=== PATIENT | male | born 1970 | race Caucasian/White ===

== ENCOUNTER 2024-06-27 03:21 | Emergency (ER) | payer OTHER ==
[2024-06-27 03:30] VITALS: BP 154/110; PULSE 78; RESP 16; TEMP 98.6; BMI 33.7
[2024-06-27] MEDS ORDERED: LIDOCAINE 5% TOPICAL PATCH ONE (03:46)
[2024-06-27] MEDS ORDERED: KETOROLAC TROMETHAMINE 60 MG/2 ML VIAL ONE (03:46)
[2024-06-27] MEDS: LIDOCAINE 5% TOPICAL PATCH TP ONE (04:05)
[2024-06-27] MEDS: KETOROLAC TROMETHAMINE 60 MG/2 ML VIAL IM ONE (04:06)
[2024-06-27] MEDS ORDERED: LIDOCAINE PATCH REMOVAL MC SCH (22:00)
== END 2024-06-27 04:10 | disposition home or self-care (01) ==
LOC: FER 03:21
PROC: 3E0233Z Introduction of Anti-inflammatory into Muscle, Percutaneous Approach (ICD-10-PCS; principal; 2024-06-27)
DX: M25.511 Pain in right shoulder (principal); M54.6 Pain in thoracic spine
CPT/HCPCS: 99284-25